=== PATIENT | male | born 1965 | race Caucasian/White ===

== ENCOUNTER 2018-01-25 09:13 | Emergency (ER) | payer OTHER ==
[~2018-01-25] VITALS: Ht 182.9 cm; Wt 97.5 kg
[2018-01-25 09:15] VITALS: BP 153/89
--- NOTE | 2018-01-25 10:42 | RADIOLOGY REPORT ---
EXAMINATION: XR HAND, LEFT CLINICAL INFORMATION: Status post crush injury to left hand. Rule out fracture. COMPARISON: None TECHNIQUE: 4 views of the left hand. FINDINGS: There are small punctate radiodensities seen in the soft tissues adjacent to the proximal phalanx of the thumb, middle phalanx of the fourth digit and proximal phalanx of fifth digit. There are also some radiodensities seen under the nail of the fourth digit. Diffuse soft tissue swelling is seen over the dorsum of the hand and knuckles. Slight contour deformity of the dorsal surface of the distal second metacarpal metaphysis is seen, possibly due to subtle nondisplaced fracture deformity versus normal variant. No other acute fracture or dislocation is seen. There is mild degenerative change at the interphalangeal joint of the first digit. IMPRESSION: 1. Dorsal soft tissue swelling is seen over the hand with subtle contour deformity of the dorsal surface of the distal second metacarpal metaphysis. Please correlate clinically. Findings may be related to subtle nondisplaced fracture deformity versus a normal variant. Depending on clinical circumstances, follow-up imaging in 7-10 days can be performed for reassessment. 2. Scattered punctate foreign bodies in the soft tissues as discussed above.
--- NOTE | 2018-01-25 10:59 | ED HAND/WRIST INJURY COMPLAINT ---
History of Present Illness General Chief Complaint: Hand or Wrist Injury Stated Complaint: LEFT HAND PAIN S/P HAMMER STRIKE TO BACK OF HAND Source: patient Exam Limitations: no limitations Vital Signs & Intake/Output Vital Signs & Intake/Output ED Intake and Output 01/26 0000 01/25 1200 Intake Total 0 Output Total Balance 0 Intake, Oral 0 Patient 215 lb Weight Weight Reported by Patient Measurement Method Allergies Coded Allergies: No Known Allergies (01/25/18) Reconcile Medications No Known Home Medications Triage Note: 52 YO MALE TO TRIAGE FOR EVAL OF L HAND, STATES HE ACCIDENTLY HIT HIS HAND WITH A HAMMER YESTERDAY. STATES TODAY STARTED WITH SWELLING AND NUMBESS TO L HAND, STATES PAIN IS VERY MINIAMAL /. +PMS Triage Nurses Notes Reviewed? yes Occurred: yesterday Duration: day(s): Timing: recent history Injury Environment: work Severity: moderate Pain/Injury Location: Left: Hand. HPI: 52-year-old male presents to emergency department complaining of crush injury to left hand at work yesterday. Patient states he actually hit his left hand with a hammer yesterday. Patient reports increasing pain and swelling to left hand since the injury. He also reports numbness and tingling sensation associated with increasing swelling. Patient denies ecchymosis, bleeding, limited ROM. (Gena Giraldo) Past History Travel History Traveled to [place] past 21 day No Medical History Any Pertinent Medical History? none Neurological: NONE EENT: NONE Cardiovascular: NONE Respiratory: NONE Gastrointestinal: NONE Hepatic: NONE Renal: NONE Musculoskeletal: NONE Psychiatric: NONE Endocrine: NONE Blood Disorders: NONE Cancer(s): NONE METAL TREATER/Reproductive: NONE Tetanus Vaccine: Surgical History Surgical History: non-contributory Psychosocial History What is your primary language Divehi Tobacco Use: Never used Family History Hx Contributory? No (Gena Giraldo) Review of Systems Review of Systems Constitutional: Reports: no symptoms. EENTM: Reports: no symptoms. Respiratory: Reports: no symptoms. Cardiovascular: Reports: no symptoms. GI: Reports: no symptoms. Genitourinary: Reports: no symptoms. Musculoskeletal: Reports: see HPI. Skin: Reports: no symptoms. Neurological/Psychological: Reports: see HPI. Hematologic/Endocrine: Reports: no symptoms. Immunologic/Allergic: Reports: no symptoms. All Other Systems: Reviewed and Negative (Gena Giraldo) Physical Exam Physical Exam General Appearance: well developed/nourished, no apparent distress, alert, awake Head: atraumatic, normal appearance Eyes: Bilateral: normal appearance. Ears, Nose, Throat: hearing grossly normal Neck: normal inspection, supple, full range of motion Cardiovascular/Respiratory: normal peripheral pulses, no respiratory distress Back: normal inspection, normal range of motion Wrist Left: normal range of motion, normal inspection, nontender Wrist Right: normal range of motion, normal inspection Hand Left: tenderness and swelling to dorsum of hand at 1st and 2nd metacarpal bones, FROM Hand Right: normal inspection, normal range of motion Neurologic/Tendon: normal sensation, normal motor functions, normal tendon functions Skin: intact, normal color, warm/dry (Emma WU,Gena Sorensen) Progress Differential Diagnosis: contusion, dislocation, fracture, sprain, retained foreign bodies Plan of Care: Orders Procedure Date/time Status Durable Medical Equipment 01/25 1108 Active Patient has intact sensation on physical exam. 2nd metacarpal abnormality on x- ray however no definite fracture. Patient does have tenderness in this area. Will place and splint and have follow-up with plastics for repeat xray in 7-10 days. He states he is aware of the retained foreign bodies, he states he sustained them d/t his work. Patient is neurovascularly intact. He is in no acute distress. He agrees with the plan of care. Diagnostic Imaging: Viewed by Me: Radiology Read. Discussed w/RAD: Radiology Read. Radiology Impression: PATIENT: KEVIN PAREKH PRESENT AGE: 52 PATIENT ACCOUNT NO: [id number] : 63 LOCATION: [facility] ORDERING PHYSICIAN: Gena WU SERVICE DATE: 01/25/18 EXAM TYPE: RAD - XRY-HAND, LEFT EXAMINATION: XR HAND, LEFT CLINICAL INFORMATION: Status post crush injury to left hand. Rule out fracture. COMPARISON: None TECHNIQUE: 4 views of the left hand. FINDINGS: There are small punctate radiodensities seen in the soft tissues adjacent to the proximal phalanx of the thumb, middle phalanx of the fourth digit and proximal phalanx of fifth digit. There are also some radiodensities seen under the nail of the fourth digit. Diffuse soft tissue swelling is seen over the dorsum of the hand and knuckles. Slight contour deformity of the dorsal surface of the distal second metacarpal metaphysis is seen, possibly due to subtle nondisplaced fracture deformity versus normal variant. No other acute fracture or dislocation is seen. There is mild degenerative change at the interphalangeal joint of the first digit. IMPRESSION: 1. Dorsal soft tissue swelling is seen over the hand with subtle contour deformity of the dorsal surface of the distal second metacarpal metaphysis. Please correlate clinically. Findings may be related to subtle nondisplaced fracture deformity versus a normal variant. Depending on clinical circumstances, follow-up imaging in 7-10 days can be performed for reassessment. 2. Scattered punctate foreign bodies in the soft tissues as discussed above. DICTATED BY: Riri Ansari MD DATE/TIME DICTATED:01/25/181013 [employer]:MCKENZIE DATE/TIME TRANSCRIBED:01/25/181013 CONFIDENTIAL, DO NOT COPY WITHOUT APPROPRIATE AUTHORIZATION. <Electronically signed in Other Vendor System> SIGNED BY: Riri Ansari MD 01/25/18 1042 (Emma WU,Gena Sorensen) Departure Departure Disposition: HOME OR SELF CARE Condition: Stable Clinical Impression Primary Impression: Crushing injury of left hand Qualifiers: Encounter type: initial encounter Qualified Code: S67.22XA - Crushing injury of left hand, initial encounter Secondary Impressions: Foreign body in hand Qualifiers: Encounter type: initial encounter Laterality: left Qualified Code: S60.552A - Superficial foreign body of left hand, initial encounter Referrals: Cornelius CARLSON,Onesimo Pederson MD,Dave Knapp (PCP/Family) Additional Instructions: Wear splint to protect your hand until you follow-up with a hand specialist. It is recommended to have repeat x-rays performed in 7-10 days. Take ibuprofen 600 mg up to 3 times a day with food. Apply ice and rest, do not use your left hand until cleared by hand specialist. There are foreign bodies present, as discussed the hand specialist can also evaluate these. Return if any worsening symptoms or concerns. Please note that there might be incidental findings in your evaluation that are unrelated to the current emergency department visit. Please notify your primary care doctor about this emergency department visit in order to obtain and review all of the testing performed so that these incidental findings can be monitored as needed. If you had an x-ray performed, please understand that some fractures may not be seen on the initial set of x-rays. If your symptoms persist you might need a repeat set of x-rays to check for such a fracture. If you had a laceration evaluated, please understand that foreign bodies such as glass or wood may not be visible to the naked eye or on plain x-rays. If the wound becomes red, swollen, increasingly more painful or if there is any drainage from the wound, please have it reevaluated by a physician for the possibility of a retained foreign body. If you're unable to follow up as outlined in the discharge instructions please return to the emergency department. Thank you for choosing the [facility] Emergency Department for your care. It was a pleasure to serve you today. Departure Forms: Customer Survey General Discharge Information Prescriptions: Current Visit Scripts No Known Home Medications (Gena Giraldo) PA/DENTURE WAXER Co-Sign Statement Statement: ED Attending supervision documentation- [] I saw and evaluated the patient. I have also reviewed all the pertinent lab results and diagnostic results. I agree with the findings and the plan of care as documented in the PA's/DENTURE WAXER's documentation. [x] I have reviewed the ED Record and agree with the PA's/DENTURE WAXER's documentation. [] Additions or exceptions (if any) to the PAs/DENTURE WAXER's note and plan are summarized below: [] (Eloisa CARLSON, Srinivas) Procedures Splinting Location: left hand Manual Alignment Performed: No Pre-Made Type: velcro Splint: volar Splint Applied By: splint applied by other Pre-Proc Neuro Vasc Exam: normal Post-Proc Neuro Vasc Exam: normal (Gena Giraldo)
== END 2018-01-25 11:23 ==
LOC: ERH 09:13
DX: S60.552A Superficial foreign body of left hand, initial encounter (principal); W22.8XXA Striking against or struck by other objects, initial encounter; Y93.9 Activity, unspecified; Y92.9 Unspecified place or not applicable
CPT/HCPCS: 73130-LT